=== PATIENT | female | born 1980 | race Caucasian/White ===

== ENCOUNTER 2019-07-21 18:45 | Emergency (ER) | payer OTHER, SELFPAY ==
[2019-07-21 18:58] VITALS: BP 133/68; PULSE 78; RESP 16; TEMP 36.7; O2SAT 100; BMI 21.7
[2019-07-21 19:22] LABS: Add Manual Diff / Slide Review NO; Basophils Absolute Auto 0 /uL (0-100); Basophils Percent Auto 0.3 % (0-2); Eosinophils Absolute Auto 100 /uL (0-450); Eosinophils Percent Auto 0.9 % (2-4); Hematocrit 35.1 % (36-46); Lymphocytes Absolute Auto 2100 /uL (1100-4500); Lymphocytes Percent Auto 24.1 % (25-40); Mean Corpuscular HGB Conc 34.3 % (30-36); Mean Corpuscular Hemoglobin 30.7 PG (26-34); Mean Corpuscular Volume 89.6 fL (80-100); Monocytes Absolute Auto 400 /uL (0-900); Monocytes Percent Auto 4.7 % (3-14); Neutrophils Absolute Auto 6200 /uL (1500-7000); Platelet Count 272 X10^3/uL (150-400); Red Blood Cell Count 3.92 X10^6/uL (4.0-5.2); Red Cell Distribution Width 12.8 % (11.6-14.8); White Blood Cell Count 8.9 X10^3/uL (4.5-11.0)
[2019-07-21 19:34] LABS: Alanine Aminotransferase 14 IU/L (<35); Albumin 4.3 g/dL (3.5-5.0); Albumin Globulin Ratio 1.4 (1.0-2.8); Alkaline Phosphatase 46 U/L (38-126); Aspartate Aminotransferase 22 IU/L (14-36); BUN Creatinine Ratio 17.1 (6-22); Bilirubin Total 0.5 mg/dL (0.2-1.3); Blood Urea Nitrogen 12 mg/dL (7-17); Calcium 9.1 mg/dL (8.4-10.2); Carbon Dioxide 24 mmol/L (22-32); Chloride 103 mmol/L (98-107); Estimated Glomerular Filt Rate > 60.0 mL/min (>60); Globulin 3.1 g/dL (1.7-4.1); Glucose 92 mg/dL (70-100); HEMOLYSIS < 15 (0-50); Potassium 3.3 mmol/L (3.4-5.1); Sodium 137 mmol/L (137-145); Total Protein 7.4 g/dL (6.3-8.2)
[2019-07-21 19:53] LABS: HCG Quantitative /Beta subunit 747 mIU/mL
[2019-07-21 21:17] VITALS: BP 112/56; PULSE 71; RESP 20; O2SAT 100
--- NOTE | 2019-07-21 21:32 | ED_ITS ---
HPI - General Chief complaint: OB/Uterine Contractions Stated complaint: LIGHT SPOTTING BACK PAIN Time Seen by Provider: 07/21/19 21:26 Source: patient Mode of arrival: Family Vehicle Limitations: no limitations History of Present Illness HPI Narrative: This is a 38-year-old female who comes to the emergency department with complaint back pain and some light spotting today. Patient states she has pain in the left lower back. It sort of point tenderness radiates little towards the buttock. When she lifts her move her legs it exacerbates it or she sits forward or bends forward. She has had some sciatic and back issues with her prior but she was not having any symptoms until today patient also noticed while she was urinating that there was some slight blood on the toilet paper as well as on her underwear. She states that she has had a positive test. She states her last menstrual period was June 09. Patient has not had any other symptoms, no syncope, no l ightheadedness, no chest pain or shortness of breath no nausea, no vomiting, no other GI or urinary symptoms. No frequency dysuria urgency. She has not had any other vaginal discharge. Patient states she is otherwise healthy. She has had 1 prior that was delivered via . She has not established with an OB yet but follows through the [facility]. Date of Last Menstrual Period: 06/09/19 Patient : Yes Expected Date of Delivery: 03/15/20 Related Data Previous Rx's Medication Instructions Recorded Mynatal 1 cap PO QDAY #30 cap 09/10/17 Allergies Allergy/AdvReac Type Severity Reaction Status Date / Time metoclopramide [From REGLAN] Allergy Intermediate muscle Unverified 12/20/17 09:55 tightness Sulfa (Sulfonamide Allergy Mild nausea Unverified 12/20/17 09:55 Antibiotics) [SULFA (SULFONAMIDE ANTIBIOTICS)] Review of Systems Review of Systems ROS Unobtainable: All systems reviewed & are unremarkable except as noted in HPI and below PMFSH - Past Medical History Medical history: Reports no medical history Surgical history: Reports (x1) Date of Last Menstrual Period: 06/09/19 Patient : Yes Expected Date of Delivery: 03/15/20 Exam Narrative Exam Narrative: GENERAL: Alert and oriented x three, then, well-appearing female in no acute distress. HEENT: Head normocephalic, atraumatic, EOMI, pupils reactive, face symmetric, moist mucous membranes NECK: Supple, full range of motion CARDIOVASCULAR: Regular rate and rhythm without murmurs, rubs or gallops. RESPIRATORY: Breath sounds equal bilaterally, no wheezes rales or rhonchi. ABDOMEN: Soft, nontender. Normoactive bowel sounds all 4 quadrants. No guarding or rebound, rigidity, no mass : No CVA tenderness EXTREMITIES: Normal range of motion, no clubbing or edema. Neurovascularly intact NEUROLOGICAL: Cranial nerves II through XII grossly intact. Moving all extremities SKIN: Warm, dry, no petechiae, no rashes or lesions. Initial Vital Signs Initial Vital Signs: Vital Signs Temperature 98.1 F 07/21/19 18:58 Pulse Rate 78 07/21/19 18:58 Respiratory Rate 16 07/21/19 18:58 Blood Pressure 133/68 07/21/19 18:58 Pulse Oximetry 100 07/21/19 18:58 Course Orders Ordered: ED Orders 07/21/19 19:15 ABO RH Type Stat Complete Blood Count AUTO DIFF Stat Comprehensive Metabolic Panel Stat HCG Quantitative /Beta subunit Stat 07/21/19 21:45 US OB <= 14 weeks fetus Stat Vital Signs Vital signs: Vital Signs - 8 hr 07/21/19 18:58 07/21/19 21:17 07/21/19 23:10 Temperature 98.1 F Pulse Rate 78 71 68 Respiratory Rate 16 20 13 Blood Pressure 133/68 112/69 Blood Pressure [Left Arm] 112/56 L Pulse Oximetry 100 100 100 MDM - OB/Uterine Contractions Lab Data Attestation: I reviewed the patient's lab results. Result diagrams: 07/21/19 19:15 07/21/19 19:15 Labs: Lab Results 07/21/19 07/21/19 07/21/19 Range/Units 19:15 19:15 19:15 WBC 8.9 (4.5-11.0) X10^3/uL RBC 3.92 L (4.0-5.2) X10^6/uL Hgb 12.0 (12.0-16.0) g/dL Hct 35.1 L (36-46) % MCV 89.6 (80-100) fL MCH 30.7 (26-34) PG MCHC 34.3 (30-36) % RDW 12.8 (11.6-14.8) % Plt Count 272 (150-400) X10^3/uL Neut % (Auto) 70.0 (50-75) % Lymph % (Auto) 24.1 L (25-40) % [place] % (Auto) 4.7 (3-14) % Eos % (Auto) 0.9 L (2-4) % Baso % (Auto) 0.3 (0-2) % Neut # (Auto) 6200 (9822-5862) /uL Lymph # (Auto) 2100 (0214-3703) /uL [place] # (Auto) 400 (0-900) /uL Eos # (Auto) 100 (0-450) /uL Baso # (Auto) 0 (0-100) /uL Sodium 137 (137-145) mmol/L Potassium 3.3 L (3.4-5.1) mmol/L Chloride 103 (98-107) mmol/L Carbon Dioxide 24 (22-32) mmol/L BUN 12 (7-17) mg/dL Creatinine 0.70 (0.52-1.04) mg/dL Estimated GFR > 60.0 (>60) mL/min BUN/Creatinine Ratio 17.1 (6-22) Glucose 92 (70-100) mg/dL Calcium 9.1 (8.4-10.2) mg/dL Total Bilirubin 0.5 (0.2-1.3) mg/dL AST 22 (14-36) IU/L ALT 14 (<35) IU/L Alkaline Phosphatase 46 (38-126) U/L Total Protein 7.4 (6.3-8.2) g/dL Albumin 4.3 (3.5-5.0) g/dL Globulin 3.1 (1.7-4.1) g/dL Albumin/Globulin Ratio 1.4 (1.0-2.8) HCG, Quant 747 mIU/mL Blood Type B Positive Point of Care Testing Test Results Positive Urine Dip Bedside Urine Glucose Negative Bedside Urine Bilirubin - Negative Bedside Urine Ketone + 15 Urine Specific [place] 1.015 Bedside Urine Occult Blood - Negative Bedside Urine pH 6.5 Bedside Urine Protein - Negative Bedside Urine Urobilinogen - Negative Bedside Urine Nitrite - Negative Bedside Urine Leukocytes - Negative Esterase Imaging Data US - OB: Radiologist's Impression: No pole visualized with an intrauterine gestational sac on today's exam consistent with early date of . Malin rveillance ultrasonography in 2-3 weeks to be helpful to assess for appropriate progression of the . Intra or very complex cyst as described likely hemorrhagic versus functional. No free fluid. MDM Narrative Medical decision making narrative: Patient is B+ and does not require rhogam. No pole was visualized but there is a gestational sac consistent with early date . Surveillance ultrasound in 2-3 weeks to be appropriate. There is intra ovarian complex described likely hemorrhagic versus functional. Discussed findings with patient. Recommendations for repeat imaging and encouraged her to contact either primary care doctor home who can follow this or through the [employer] she [facility]. Patient's back pain may be related to her prior back pain or this may be related today's episode, there is possibility for potential early miscarriage versus spotting during . Patient recommen ded to follow up with Dr. Isbell for recheck and serial exams. Discharge Plan Departure Patient Disposition: Home Clinical Impression: Vaginal bleeding during Discharge Date/Time: 07/21/19 23:10 Instructions: DI for Vaginal Bleeding During Activity Restrictions/Additional Instructions: Follow up with your physician or provider in the next week. Call Wednesday for an appointment. Your US is consistent with dates of . There is an intraovarian complex cyst, likely hemorrhagic versus functional. Your physician may follow-up with repeat ultrasound imaging. I would recommend pelvic rest until cleared by our provider, no lifting greater than 25lbs, no sexual activity. Return to the ER for fevers greater 100.4 F, rapidly worsened bleeding, large clots, lightheadedness, passing out, severe abdominal or back pain or other new or concerning symptoms. Prescriptions: No Action Mynatal 1 EACH capsule 1 cap PO QDAY Qty: 30 RF: 12 Referrals: Surinder Isbell MD [Primary Care Provider] -
--- NOTE | 2019-07-21 21:45 | DI.US.S_ITS ---
PROCEDURE: US OB <= 14 WEEKS FETUS INDICATIONS: BACK PAIN, SPOTTING OUTSIDE/PRIOR DATING DATA: Last menstrual period (LMP): 06/09/19. LMP-based estimated date of delivery (CATALINO): 03/15/20. First dating scan (date and location): 07/21/19, [facility]. Estimated date of delivery (CATALINO) from first dating scan: 03/23/20. TECHNIQUE: Real-time scanning was performed of the fetus and maternal pelvic organs, with image documentation. Endovaginal scanning was also performed to better visualize the fetus and maternal ovaries. COMPARISON: None. FINDINGS: Embryo: There is a gestational sac seen, with a mean diameter of 0.2 cm, which corresponds to an estimated gestational age of 4 weeks 6 days. No pole or yolk sac can be seen at this time. No abnormal vascularity can be seen. Measurement variability in dating: +/- 4 weeks by LMP, +/- 7 days by mean sac diameter (use before 6 weeks gestation if crown-rump length not able to be measured), +/- 5 days by crown-rump length (up to 8 weeks 6 days gestation), +/- 7 days by crown-rump length (up to 13 weeks 6 days gestation). Maternal organs: Ovaries are unremarkable, with a left-sided likely corpus luteum. Limited images through the kidneys demonstrate no hydronephrosis. IMPRESSION: There is an apparent intrauterine gestational sac seen, with an approximately 1 week discrepancy between the estimated gestational age based upon these images and the given date of the last menstrual period. Close clinical followup, with serial beta-hCG and serial ultrasound are recommended, as clinically appropriate. Note: No significant discrepancy from the preliminary report. Dictated by: Steve Parada M.D. on 07/22/2019 at 9:03 Approved by: Steve Parada M.D. on 07/22/2019 at 9:05
[2019-07-21 23:10] VITALS: BP 112/69; PULSE 68; RESP 13; O2SAT 100
== END 2019-07-21 23:10 | disposition home or self-care (01) ==
PROVIDERS: Emergency Medicine; Emergency Provider Emergency Medicine; PCP Family Medicine
DX: O46.91 Antepartum hemorrhage, unspecified, first trimester (principal)
CPT/HCPCS: 36415; 76801; 76817; 80053; 81003; 81025; 84702; 85025; 86900; 86901; 99284

== ENCOUNTER 2023-12-22 11:15 | Outpatient (RCR) | payer OTHER, SELFPAY ==
--- NOTE | 2023-08-05 16:00 | PT.OPPOC ---
Physical, Occupational & Speech Therapy At [facility] Current Diagnoses Stress incontinence (female) (male) (08/05/23) Pelvic muscle wasting (08/05/23) Feeling of incomplete bladder emptying (08/05/23) Visit Care Team Role Provider Type ALEX Mahajan Attending Provider Non-Staff Family Provider Primary Care Provider Referring Provider Specialty: Nursing Address: [facility], [address] [place] [address] , [place], [address] Email: Plan Of Care PT-OP-T Assessment and Plan Start: 08/05/23 11:48 Freq: Status: Active Protocol: Document 08/05/23 15:15 [facility] (Rec: 08/05/23 16:23 [facility] [id number]) Physical Therapy Assessment Rehab Potential Rehabilitation Potential Excellent Evaluation Complexity Number of Personal Factors/Comorbidities 0 Number of Body Systems Impaired 1-2 Clinical Presentation at Evaluation Stable Impairments Impairments Activity Tolerance,Functional Activities,Pain,Soft Tissue Mobility,Strength Other Impairments urinary stress incontinence and difficulty fully emptying her bladder Goals 3 Impairment Decreased endurance of the pelvic floor Short Term Goal (STG) Quyen is able to sustain a pelvic floor contraction in supine x 10 seconds STG Duration 6 weeks Fire Control Technician Goal (LTG) Quyen is able to sustain a pelvic floor contraction in standing x 5 seconds LTG Duration 12 weeks 2 Impairment Pelvic floor muscle guarding on the left side of the levator ani and pt has difficulty relaxing her pelvic floor at rest Short Term Goal (STG) Quyen is educated on relaxed awareness of the pelvic floor and is given stretches to begin working on pelvic floor relaxation STG Duration 4 weeks Shelter Goal (LTG) Quyen is able to fully relax her pelvic floor at rest with EMG biofeedback LTG Duration 12 weeks 1 Impairment urinary stress incontinence Shelter Goal (LTG) Quyen is no longer reporting urinary leakage with strong cough or sneeze Assessment Summary Assessment Quyen is a 42 year old female referred to PT with complaints of urinary incontinence with strong cough or sneeze and vigorous exercise. She is 5 years post from a delivery. Prior to the c section she was attempting a vaginal delivery. She reports she pushed for 3 hours and then forceps and vacuum were used to try to deliver the baby vaginally. Quyen reports that since her delivery she has had a slower urinary stream and doesn't feel as if she is fully emptying her bladder. She also has some complaints of anterior pelvic pain that is intermittent in nature. With examination today Quyen presents with guarding of the levator ani on the left side and decreased ability to relax her pelvic floor on the left. The right side is tight but she is better able to relax. She tests 3/5 MMT for all gomez of the levator ani. She presents with decreased endurance of her pelvic floor. Quyen would benefit from learning to fully relax her pelvic floor prior to working on pelvic floor endurance. She was educated on fully relaxing her pelvic floor with voiding and taking her time with voiding to help improve full bladder emptying. She was also educated today on stretches she can do at home to help with pelvic floor relaxation. Quyen is a good candidate for EMG biofeedback for the pelvic floor to work on down training for her pelvic floor muscles and then working up to endurance training. Physical Therapy Plan Frequency and Duration Frequency of Treatment 1x/Week Duration of treatment (weeks) 12 Plan of Care Start Date 08/05/23 Plan of Care End Date 10/28/23 Therapeutic Interventions Therapeutic Interventions Home Exercise Program, Neuromuscular Re-education, Patient/Caregiver Education, Self-Care/Home Management,Soft Tissue Mobilization, Therapeutic Exercises Modalities Biofeedback Next Visit Focus/Plan Next Note Type Treatment Note Next Visit Plan Begin EMG biofeedback next visit for relaxed awareness of the pelvic floor, review stretches given at today's visit. Plan of Care Dates Plan of Care Start Date 08/05/23 Plan of Care End Date 10/28/23 Electronically Signed by: Kari Cavanaugh, PT 08/10/23 [id number] If you are in agreement with this Plan of Care, please return a signed and dated copy. I have reviewed this Plan of Care and certify that the skilled therapy services above are required to meet the patient?s needs. Physician Signature Date Printed Name and Credentials Clinical Instructor Signature Printed Name and Credentials
--- NOTE | 2023-08-05 16:00 | PT.OIE ---
Current Diagnoses Stress incontinence (female) (male) (08/05/23) Pelvic muscle wasting (08/05/23) Feeling of incomplete bladder emptying (08/05/23) Past Surgical History (Last Reviewed 12/02/17 @ 15:51 by Kathleen Mcmahon LPN) Status post delivery (09/07/17) Visit Care Team Role Provider Type ALEX Mahajan Attending Provider Non-Staff Family Provider Primary Care Provider Referring Provider Specialty: Nursing Address: [facility] [address], [place], [address] Email: Physical Therapy Initial Evaluation PT-OP-A Visit Information Start: 08/05/23 11:48 Freq: Status: Active Protocol: Document 08/05/23 15:15 [facility] (Rec: 08/05/23 16:23 [facility] [id number]) Out-Patient Physical Therapy Visit Information Visit Information Visit Type Initial Evaluation Visit Start Time 15:15 Visit Stop Time 16:00 Visit Number 1 Evaluation Information Evaluation Date 08/05/23 PT-OP-B Current Condition Start: 08/05/23 11:48 Freq: Status: Active Protocol: Document 08/05/23 15:15 [facility] (Rec: 08/05/23 16:23 [facility] [id number]) Current Condition History of Current Condition Onset Date 2018 Current Complaints urinary leakage with strong cough and sneeze, not fully emptying the bladde History of Current Condition pt notes she is having incontinence symptoms, she was told she has atrophied She has a history of a c section after she pushed for 3 hours and then forceps and vaccumm were used. The doctors were unable to get a good enough grasp of her head. Her delivery was in 2018. She has slower stream but feels she often doesn't fully emptying her bladder. She has felt more anterior pelvic pain symptoms more often now. She does have a history of UTI's. IT is intercourse related and she goes to the bathroom. She also has complaints of jaw pain that is more noticiable in the last year. PT-OP-C Subjective Start: 08/05/23 11:48 Freq: Status: Active Protocol: Document 08/05/23 15:15 [facility] (Rec: 08/10/23 15:08 [facility] [id number]) Patient Questionnaires Pelvic Pain and Urgency/Frequency Patient Symptom Scale Pelvic Pain Score 9 PT-OP-I Pelvic Floor Start: 08/05/23 11:48 Freq: Status: Active Protocol: Document 08/05/23 15:15 [facility] (Rec: 08/10/23 08:15 [facility] [id number]) Pelvic Floor Assessment Urine Pelvic Floor Surgery No Urinary Symptoms Urge Sensation Other Urinary Symptoms urinary stress incontinence with strong cough and sneeze or vigorous activity, pt also discribes mild urgency and occasional pain associated with per vagina Leakage Size Small Leakage Cause Cough,Sneeze Voiding Frequency 5 Nocturia 1 Pelvic Clock Pelvic Clock 3-6 Guarding,Tightness Pelvic Clock 6-9 Tightness Contraction Ability Manual Muscle Testing Left 3 Manual Muscle Testing Right 3 Manual Muscle Testing Anterior 3 Manual Muscle Testing Posterior 3 Muscle Endurance (Seconds) 4 Comments Pelvic Floor Comments pt resting tone on the left side of the pelvic clock is guarded and tight, it is difficult for her to relax her pelvic floor following a contraction PT-OP-Q Treatments Start: 08/05/23 11:48 Freq: Status: Active Protocol: Document 08/05/23 15:15 [facility] (Rec: 08/05/23 16:23 [facility] [id number]) Therapeutic Exercises Supine Exercises hip flexor stretch at the side of the bed Reps/Minutes hold 1-2 min single knee to chest stretch Reps/Minutes hold 1-2 minutes piriformis stretch Reps/Minutes hold 1-2 minutes supine modified squat stretch Reps/Minutes hold 1-2 minutes Other Exercises modified squat stretch Reps/Minutes hold 1-2 min PT-OP-T Assessment and Plan Start: 08/05/23 11:48 Freq: Status: Active Protocol: Document 08/05/23 15:15 [facility] (Rec: 08/05/23 16:23 [facility] [id number]) Physical Therapy Assessment Rehab Potential Rehabilitation Potential Excellent Evaluation Complexity Number of Personal Factors/Comorbidities 0 Number of Body Systems Impaired 1-2 Clinical Presentation at Evaluation Stable Impairments Impairments Activity Tolerance,Functional Activities,Pain,Soft Tissue Mobility,Strength Other Impairments urinary stress incontinence and difficulty fully emptying her bladder Goals 3 Impairment Decreased endurance of the pelvic floor Short Term Goal (STG) Quyen is able to sustain a pelvic floor contraction in supine x 10 seconds STG Duration 6 weeks Nuisance Wildlife Control Operator Goal (LTG) Quyen is able to sustain a pelvic floor contraction in standing x 5 seconds LTG Duration 12 weeks 2 Impairment Pelvic floor muscle guarding on the left side of the levator ani and pt has difficulty relaxing her pelvic floor at rest Short Term Goal (STG) Quyen is educated on relaxed awareness of the pelvic floor and is given stretches to begin working on pelvic floor relaxation STG Duration 4 weeks Nursing Home Goal (LTG) Quyen is able to fully relax her pelvic floor at rest with EMG biofeedback LTG Duration 12 weeks 1 Impairment urinary stress incontinence Nuisance Wildlife Control Operator Goal (LTG) Quyen is no longer reporting urinary leakage with strong cough or sneeze Assessment Summary Assessment Quyen is a 42 year old female referred to PT with complaints of urinary incontinence with strong cough or sneeze and vigorous exercise. She is 5 years post from a delivery. Prior to the c section she was attempting a vaginal delivery. She reports she pushed for 3 hours and then forceps and vaccumm were used to try to deliver the baby vaginally. Quyen reports that since her delivery she has had a slower urinary stream and doesn't feel as if she is fully emptying her bladder. She also has some complaints of anterior pelvic pain that is intermittent in nature. With examination today Quyen presents with guarding of the levator ani on the left side and decreased ability to relax her pelvic floor on the left. The right side is tight but she is better able to relax. She tests 3/5 MMT for all gomez of the levator ani. She presents with decreased endurance of her pelvic floor. Quyen would benefit from learning to fully relax her pelvic floor prior to working on pelvic floor endurance. She was educated on fully relaxing her pelvic floor with voiding and taking her time with voiding to help improve full bladder emptying. She was also educated today on stretches she can do at home to help with pelvic floor relaxation. Quyen is a good candidate for EMG biofeedback for the pelvic floor to work on down training for her pelvic floor muscles and then working up to endurance training. Physical Therapy Plan Frequency and Duration Frequency of Treatment 1x/Week Duration of treatment (weeks) 12 Plan of Care Start Date 08/05/23 Plan of Care End Date 10/28/23 Therapeutic Interventions Therapeutic Interventions Home Exercise Program, Neuromuscular Re-education, Patient/Caregiver Education, Self-Care/Home Management,Soft Tissue Mobilization, Therapeutic Exercises Modalities Biofeedback Next Visit Focus/Plan Next Note Type Treatment Note Next Visit Plan Begin EMG biofeedback next visit for relaxed awarensess of the pelvic floor, review stretches given at today's visit.
--- NOTE | 2023-08-10 16:17 | PT.OTN ---
Current Diagnoses Stress incontinence (female) (male) (08/10/23) Pelvic muscle wasting (08/10/23) Feeling of incomplete bladder emptying (08/10/23) Physical Therapy Treatment Note PT-OP-A Visit Information Start: 08/05/23 11:48 Freq: Status: Active Protocol: Document 08/10/23 15:15 [facility] (Rec: 08/10/23 16:17 [facility] [id number]) Out-Patient Physical Therapy Visit Information Visit Information Visit Type Treatment Note Visit Start Time 15:15 Visit Stop Time 16:00 Visit Number 45 Evaluation Information Evaluation Date 08/05/23 PT-OP-B Current Condition Start: 08/05/23 11:48 Freq: Status: Active Protocol: Document 08/05/23 15:15 [facility] (Rec: 08/05/23 16:23 [facility] [id number]) Current Condition History of Current Condition Onset Date 2018 Current Complaints urinary leakage with strong cough and sneeze, not fully emptying the bladde History of Current Condition pt notes she is having incontinence symptoms, she was told she has atrophied She has a history of a c section after she pushed for 3 hours and then forceps and vaccumm were used. The doctors were unable to get a good enough grasp of her head. Her delivery was in 2018. She has slower stream but feels she often doesn't fully emptying her bladder. She has felt more anterior pelvic pain symptoms more often now. She does have a history of UTI's. IT is intercourse related and she goes to the bathroom. She also has complaints of jaw pain that is more noticiable in the last year. PT-OP-C Subjective Start: 08/05/23 11:48 Freq: Status: Active Protocol: Document 08/10/23 15:15 [facility] (Rec: 08/10/23 16:17 [facility] [id number]) OP-PT Subjective Patient Comments Patient Comments she has been working on fully emptying her bladder with voiding, she has been able to get more out PT-OP-I Pelvic Floor Start: 08/05/23 11:48 Freq: Status: Active Protocol: Document 08/05/23 15:15 [facility] (Rec: 08/10/23 08:15 [facility] [id number]) Pelvic Floor Assessment Urine Pelvic Floor Surgery No Urinary Symptoms Urge Sensation Other Urinary Symptoms urinary stress incontinence with strong cough and sneeze or vigorous activity, pt also discribes mild urgency and occasional pain associated with per vagina Leakage Size Small Leakage Cause Cough,Sneeze Voiding Frequency 5 Nocturia 1 Pelvic Clock Pelvic Clock 3-6 Guarding,Tightness Pelvic Clock 6-9 Tightness Contraction Ability Manual Muscle Testing Left 3 Manual Muscle Testing Right 3 Manual Muscle Testing Anterior 3 Manual Muscle Testing Posterior 3 Muscle Endurance (Seconds) 4 Comments Pelvic Floor Comments pt resting tone on the left side of the pelvic clock is guarded and tight, it is difficult for her to relax her pelvic floor following a contraction PT-OP-Q Treatments Start: 08/05/23 11:48 Freq: Status: Active Protocol: Document 08/10/23 15:15 [facility] (Rec: 08/10/23 16:17 [facility] [id number]) Therapeutic Exercises Supine Exercises hip flexor stretch at the side of the bed Reps/Minutes hold 1-2 min single knee to chest stretch Reps/Minutes hold 1-2 minutes piriformis stretch Reps/Minutes hold 1-2 minutes supine modified squat stretch Reps/Minutes hold 1-2 minutes Other Exercises pelvic floor long holds Reps/Minutes x 10 reps Comments avg 16, max is 29 rest 3.2 EMG biofeedback Other Exercise Name resting tone 5.0 uv Comments worked on relaxed awareness of the pelvic floor modified squat stretch Reps/Minutes hold 1-2 min PT-OP-T Assessment and Plan Start: 08/05/23 11:48 Freq: Status: Active Protocol: Document 08/10/23 15:15 [facility] (Rec: 08/10/23 16:17 [facility] [id number]) Physical Therapy Assessment Assessment Summary Assessment gave home program of 10 5 sec hold time and 10-20 sec rest time. She did feel tightness in her abdomen in the front. Quyen was able to relax from 5.0 uv to 3 uv after pelvic floor contractions. She may benefit from fascial work over the abdomen to help decrease the anterior tightness and guarding she is feeling. I will start this next visit Physical Therapy Plan Frequency and Duration Frequency of Treatment 1x/Week Duration of treatment (weeks) 12 Plan of Care Start Date 08/05/23 Plan of Care End Date 10/28/23 Next Visit Focus/Plan Next Note Type Treatment Note Next Visit Plan check in with how Quyen did with her exercises and stretches, trial of MFR technique over the suprapubic fascia and distal iliopsoas attachments, adductor attachments Continue with EMG biofeedback for relaxed awareness of the pelvic floor.
--- NOTE | 2023-08-31 16:18 | PT.OTN ---
Current Diagnoses Stress incontinence (female) (male) (08/31/23) Pelvic muscle wasting (08/31/23) Feeling of incomplete bladder emptying (08/31/23) Physical Therapy Treatment Note PT-OP-A Visit Information Start: 08/05/23 11:48 Freq: Status: Active Protocol: Document 08/31/23 15:14 [facility] (Rec: 08/31/23 16:18 [facility] [id number]) Out-Patient Physical Therapy Visit Information Visit Information Visit Type Treatment Note Visit Start Time 15:15 Visit Stop Time 16:00 Visit Number 4 PT-OP-B Current Condition Start: 08/05/23 11:48 Freq: Status: Active Protocol: Document 08/05/23 15:15 [facility] (Rec: 08/05/23 16:23 [facility] [id number]) Current Condition History of Current Condition Onset Date 2018 Current Complaints urinary leakage with strong cough and sneeze, not fully emptying the bladde History of Current Condition pt notes she is having incontinence symptoms, she was told she has atrophied She has a history of a c section after she pushed for 3 hours and then forceps and vaccumm were used. The doctors were unable to get a good enough grasp of her head. Her delivery was in 2018. She has slower stream but feels she often doesn't fully emptying her bladder. She has felt more anterior pelvic pain symptoms more often now. She does have a history of UTI's. IT is intercourse related and she goes to the bathroom. She also has complaints of jaw pain that is more noticiable in the last year. PT-OP-C Subjective Start: 08/05/23 11:48 Freq: Status: Active Protocol: Document 08/31/23 15:14 [facility] (Rec: 08/31/23 16:18 [facility] [id number]) OP-PT Subjective Patient Comments Patient Comments pt notes she had a episode where she felt like she may pass out, she does not with IBS she will have a vagal response. She is doing better at trying to fully relax her pelvic floor to void PT-OP-I Pelvic Floor Start: 08/05/23 11:48 Freq: Status: Active Protocol: Document 08/05/23 15:15 [facility] (Rec: 08/10/23 08:15 [facility] [id number]) Pelvic Floor Assessment Urine Pelvic Floor Surgery No Urinary Symptoms Urge Sensation Other Urinary Symptoms urinary stress incontinence with strong cough and sneeze or vigorous activity, pt also discribes mild urgency and occasional pain associated with per vagina Leakage Size Small Leakage Cause Cough,Sneeze Voiding Frequency 5 Nocturia 1 Pelvic Clock Pelvic Clock 3-6 Guarding,Tightness Pelvic Clock 6-9 Tightness Contraction Ability Manual Muscle Testing Left 3 Manual Muscle Testing Right 3 Manual Muscle Testing Anterior 3 Manual Muscle Testing Posterior 3 Muscle Endurance (Seconds) 4 Comments Pelvic Floor Comments pt resting tone on the left side of the pelvic clock is guarded and tight, it is difficult for her to relax her pelvic floor following a contraction PT-OP-Q Treatments Start: 08/05/23 11:48 Freq: Status: Active Protocol: Document 08/31/23 15:14 [facility] (Rec: 08/31/23 16:18 [facility] [id number]) Therapeutic Exercises Supine Exercises windshield wipers Reps/Minutes x 20 reps Comments this helped relax the pelvic floor to 1.0 uv hip flexor stretch at the side of the bed Reps/Minutes hold 1-2 min Other Exercises pelvic floor long holds Other Exercise Name 2.5 uv at rest Reps/Minutes x 10 reps Comments average 16.4 and 26.7 uv EMG biofeedback Other Exercise Name 2.5 resting tone Comments hip exercises helped lower to 1.0 uv rest Manual Therapy Treatment Manual Techniques manual iliopsoas release Body Location Bilateral hips Comments in ron test position, right side was not as tight today as compared to previos visits PT-OP-T Assessment and Plan Start: 08/05/23 11:48 Freq: Status: Active Protocol: Document 08/31/23 15:14 [facility] (Rec: 08/31/23 16:18 [facility] [id number]) Physical Therapy Assessment Rehab Potential Rehabilitation Potential Excellent Evaluation Complexity Number of Personal Factors/Comorbidities 0 Number of Body Systems Impaired 1-2 Clinical Presentation at Evaluation Stable Impairments Impairments Activity Tolerance,Functional Activities,Pain,Soft Tissue Mobility,Strength Other Impairments urinary stress incontinence and difficulty fully emptying her bladder Goals 3 Impairment Decreased endurance of the pelvic floor Short Term Goal (STG) Quyen is able to sustain a pelvic floor contraction in supine x 10 seconds STG Duration 6 weeks Care Home Goal (LTG) Quyen is able to sustain a pelvic floor contraction in standing x 5 seconds LTG Duration 12 weeks 2 Impairment Pelvic floor muscle guarding on the left side of the levator ani and pt has difficulty relaxing her pelvic floor at rest Short Term Goal (STG) Quyen is educated on relaxed awareness of the pelvic floor and is given stretches to begin working on pelvic floor relaxation STG Duration 4 weeks Care Home Goal (LTG) Quyen is able to fully relax her pelvic floor at rest with EMG biofeedback LTG Duration 12 weeks 1 Impairment urinary stress incontinence Component Assembler Goal (LTG) Quyen is no longer reporting urinary leakage with strong cough or sneeze Assessment Summary Assessment iliopsoas was not as tight today on the right side as it has been, Quyen has been working on standing at work and today she stood x 3 hours Physical Therapy Plan Therapeutic Interventions Therapeutic Interventions Home Exercise Program, Neuromuscular Re-education, Patient/Caregiver Education, Self-Care/Home Management,Soft Tissue Mobilization, Therapeutic Exercises Modalities Biofeedback Next Visit Focus/Plan Next Note Type Treatment Note Next Visit Plan continue with somatic exercises and releasing the hips to help release pelvic floor resting tone
--- NOTE | 2023-09-30 16:28 | PT.OTN ---
Current Diagnoses Stress incontinence (female) (male) (09/30/23) Pelvic muscle wasting (09/30/23) Feeling of incomplete bladder emptying (09/30/23) Physical Therapy Treatment Note PT-OP-A Visit Information Start: 08/05/23 11:48 Freq: Status: Active Protocol: Document 09/30/23 09:06 [facility] (Rec: 09/30/23 09:45 [facility] [id number]) Out-Patient Physical Therapy Visit Information Visit Information Visit Start Time 09:00 Visit Stop Time 09:45 Visit Number 5 PT-OP-B Current Condition Start: 08/05/23 11:48 Freq: Status: Active Protocol: Document 08/05/23 15:15 [facility] (Rec: 08/05/23 16:23 [facility] [id number]) Current Condition History of Current Condition Onset Date 2018 Current Complaints urinary leakage with strong cough and sneeze, not fully emptying the bladde History of Current Condition pt notes she is having incontinence symptoms, she was told she has atrophied She has a history of a c section after she pushed for 3 hours and then forceps and vaccumm were used. The doctors were unable to get a good enough grasp of her head. Her delivery was in 2018. She has slower stream but feels she often doesn't fully emptying her bladder. She has felt more anterior pelvic pain symptoms more often now. She does have a history of UTI's. IT is intercourse related and she goes to the bathroom. She also has complaints of jaw pain that is more noticiable in the last year. PT-OP-C Subjective Start: 08/05/23 11:48 Freq: Status: Active Protocol: Document 09/30/23 09:06 [facility] (Rec: 09/30/23 09:45 [facility] [id number]) OP-PT Subjective Patient Comments Patient Comments pt notes she is tensing so bad in her lower abdominal muscles that she feels like she has a UTI. She has to take AZO to calm it down. She also had a severe back spasm on the right side and she has nerve pain in slump test position. Her right hip flexor is really tight PT-OP-I Pelvic Floor Start: 08/05/23 11:48 Freq: Status: Active Protocol: Document 08/05/23 15:15 [facility] (Rec: 08/10/23 08:15 [facility] [id number]) Pelvic Floor Assessment Urine Pelvic Floor Surgery No Urinary Symptoms Urge Sensation Other Urinary Symptoms urinary stress incontinence with strong cough and sneeze or vigorous activity, pt also discribes mild urgency and occasional pain associated with per vagina Leakage Size Small Leakage Cause Cough,Sneeze Voiding Frequency 5 Nocturia 1 Pelvic Clock Pelvic Clock 3-6 Guarding,Tightness Pelvic Clock 6-9 Tightness Contraction Ability Manual Muscle Testing Left 3 Manual Muscle Testing Right 3 Manual Muscle Testing Anterior 3 Manual Muscle Testing Posterior 3 Muscle Endurance (Seconds) 4 Comments Pelvic Floor Comments pt resting tone on the left side of the pelvic clock is guarded and tight, it is difficult for her to relax her pelvic floor following a contraction PT-OP-Q Treatments Start: 08/05/23 11:48 Freq: Status: Active Protocol: Document 09/30/23 16:24 [facility] (Rec: 09/30/23 16:26 [facility] [id number]) Therapeutic Exercises Supine Exercises ball squeeze Reps/Minutes x 10 reps holding 5 seconds Manual Therapy Treatment Soft Tissue Mobilization MFR over the abdominal wall and suprapubic fascia Body Location abdominal wall Mobilization Type Myofascial Release Intensity/Depth Moderate Body Position Hooklying Comments worked on both suprapubic fascia as well as abdominal wall release Manual Techniques sacral counter nutation MET Reps/Duration x 5 reps kinesio tape Comments kinesio tape over the lumbar sacral fascia star pattern to decrease swelling MET for right pubic upslip Type MET for right pubic upslip Reps/Duration x 5 reps manual iliopsoas release Body Location Bilateral hips Comments in ron test position, right side was not as tight today as compared to previos visits PT-OP-T Assessment and Plan Start: 08/05/23 11:48 Freq: Status: Active Protocol: Document 09/30/23 09:06 [facility] (Rec: 09/30/23 09:45 [facility] [id number]) Physical Therapy Assessment Goals 3 Impairment Decreased endurance of the pelvic floor Short Term Goal (STG) Quyen is able to sustain a pelvic floor contraction in supine x 10 seconds STG Duration 6 weeks Correction Goal (LTG) Quyen is able to sustain a pelvic floor contraction in standing x 5 seconds LTG Duration 12 weeks Assessment Summary Assessment rightpubic bone was upslipped which may have been causing the increase in pelvic pain. I tried kinesiotape today to decrease swelling over the sacrum. Check in next visit to see how Quyen hernandezate this Physical Therapy Plan Frequency and Duration Frequency of Treatment 1x/Week Duration of treatment (weeks) 12 Plan of Care Start Date 08/05/23 Plan of Care End Date 10/28/23 Next Visit Focus/Plan Next Note Type Treatment Note Next Visit Plan continue with somatic exercises and releasing the hips to help release pelvic floor resting tone
--- NOTE | 2023-10-05 09:06 | PT.OTN ---
Current Diagnoses Stress incontinence (female) (male) (10/05/23) Pelvic muscle wasting (10/05/23) Feeling of incomplete bladder emptying (10/05/23) Physical Therapy Treatment Note PT-OP-A Visit Information Start: 08/05/23 11:48 Freq: Status: Active Protocol: Document 10/05/23 08:11 [facility] (Rec: 10/05/23 09:06 [facility] [id number]) Out-Patient Physical Therapy Visit Information Visit Information Visit Type Treatment Note Visit Start Time 08:15 Visit Stop Time 09:00 Visit Number 6 PT-OP-B Current Condition Start: 08/05/23 11:48 Freq: Status: Active Protocol: Document 08/05/23 15:15 [facility] (Rec: 08/05/23 16:23 [facility] [id number]) Current Condition History of Current Condition Onset Date 2018 Current Complaints urinary leakage with strong cough and sneeze, not fully emptying the bladde History of Current Condition pt notes she is having incontinence symptoms, she was told she has atrophied She has a history of a c section after she pushed for 3 hours and then forceps and vaccumm were used. The doctors were unable to get a good enough grasp of her head. Her delivery was in 2018. She has slower stream but feels she often doesn't fully emptying her bladder. She has felt more anterior pelvic pain symptoms more often now. She does have a history of UTI's. IT is intercourse related and she goes to the bathroom. She also has complaints of jaw pain that is more noticiable in the last year. PT-OP-C Subjective Start: 08/05/23 11:48 Freq: Status: Active Protocol: Document 10/05/23 08:11 [facility] (Rec: 10/05/23 09:06 [facility] [id number]) OP-PT Subjective Patient Comments Patient Comments pt notes she is still a little tense in her lower abdomen but not as bad. She took the tape off of the sacrum today. The right hip flexor is still tight. PT-OP-I Pelvic Floor Start: 08/05/23 11:48 Freq: Status: Active Protocol: Document 08/05/23 15:15 [facility] (Rec: 08/10/23 08:15 [facility] [id number]) Pelvic Floor Assessment Urine Pelvic Floor Surgery No Urinary Symptoms Urge Sensation Other Urinary Symptoms urinary stress incontinence with strong cough and sneeze or vigorous activity, pt also discribes mild urgency and occasional pain associated with per vagina Leakage Size Small Leakage Cause Cough,Sneeze Voiding Frequency 5 Nocturia 1 Pelvic Clock Pelvic Clock 3-6 Guarding,Tightness Pelvic Clock 6-9 Tightness Contraction Ability Manual Muscle Testing Left 3 Manual Muscle Testing Right 3 Manual Muscle Testing Anterior 3 Manual Muscle Testing Posterior 3 Muscle Endurance (Seconds) 4 Comments Pelvic Floor Comments pt resting tone on the left side of the pelvic clock is guarded and tight, it is difficult for her to relax her pelvic floor following a contraction PT-OP-Q Treatments Start: 08/05/23 11:48 Freq: Status: Active Protocol: Document 10/05/23 08:11 [facility] (Rec: 10/05/23 09:06 [facility] [id number]) Therapeutic Exercises Supine Exercises ball squeeze Reps/Minutes x 10 reps holding 5 seconds hip flexor stretch at the side of the bed Reps/Minutes hold 1-2 min single knee to chest stretch Reps/Minutes hold 1-2 minutes piriformis stretch Reps/Minutes hold 1-2 minutes Other Exercises rock backs in flexion Reps/Minutes x 10 reps cat cow Reps/Minutes x 15 Manual Therapy Treatment Manual Techniques mwm with the mobilization belt Type mwm for the hip with mobilization belt Comments idecompression right hip with hip flexion with mobilization belt MET for right pubic upslip Type MET for right pubic upslip Reps/Duration x 5 reps manual iliopsoas release Body Location Bilateral hips Comments in ron test position, right side was not as tight today as compared to previos visits PT-OP-T Assessment and Plan Start: 08/05/23 11:48 Freq: Status: Active Protocol: Document 10/05/23 08:11 [facility] (Rec: 10/05/23 09:06 [facility] [id number]) Physical Therapy Assessment Goals 3 Impairment Decreased endurance of the pelvic floor Short Term Goal (STG) Quyen is able to sustain a pelvic floor contraction in supine x 10 seconds STG Duration 6 weeks Ballistics Teacher Goal (LTG) Quyen is able to sustain a pelvic floor contraction in standing x 5 seconds LTG Duration 12 weeks 2 Impairment Pelvic floor muscle guarding on the left side of the levator ani and pt has difficulty relaxing her pelvic floor at rest Short Term Goal (STG) Quyen is educated on relaxed awareness of the pelvic floor and is given stretches to begin working on pelvic floor relaxation STG Duration 4 weeks Ballistics Teacher Goal (LTG) Quyen is able to fully relax her pelvic floor at rest with EMG biofeedback LTG Duration 12 weeks 1 Impairment urinary stress incontinence Ballistics Teacher Goal (LTG) Quyen is no longer reporting urinary leakage with strong cough or sneeze Assessment Summary Assessment still upslipped today but not as much as last visit, I worked again on releasing the right hip flexor and tried MWM with the mobilization belt She no longer feels like she has a UTI and notes she is not as tight as she was last week . Physical Therapy Plan Frequency and Duration Frequency of Treatment 1x/Week Duration of treatment (weeks) 12 Plan of Care Start Date 08/05/23 Plan of Care End Date 10/28/23 Therapeutic Interventions Therapeutic Interventions Home Exercise Program, Neuromuscular Re-education, Patient/Caregiver Education, Self-Care/Home Management,Soft Tissue Mobilization, Therapeutic Exercises Modalities Biofeedback Next Visit Focus/Plan Next Note Type Treatment Note Next Visit Plan continue with somatic exercises and releasing the hips to help release pelvic floor resting tone
--- NOTE | 2023-10-12 16:16 | PT.OTN ---
Current Diagnoses Stress incontinence (female) (male) (10/12/23) Pelvic muscle wasting (10/12/23) Feeling of incomplete bladder emptying (10/12/23) Physical Therapy Treatment Note PT-OP-A Visit Information Start: 08/05/23 11:48 Freq: Status: Active Protocol: Document 10/12/23 15:28 [facility] (Rec: 10/12/23 16:08 [facility] [id number]) Out-Patient Physical Therapy Visit Information Visit Information Visit Type Treatment Note Visit Start Time 15:20 Visit Stop Time 16:00 Visit Number 7 PT-OP-B Current Condition Start: 08/05/23 11:48 Freq: Status: Active Protocol: Document 08/05/23 15:15 [facility] (Rec: 08/05/23 16:23 [facility] [id number]) Current Condition History of Current Condition Onset Date 2018 Current Complaints urinary leakage with strong cough and sneeze, not fully emptying the bladde History of Current Condition pt notes she is having incontinence symptoms, she was told she has atrophied She has a history of a c section after she pushed for 3 hours and then forceps and vaccumm were used. The doctors were unable to get a good enough grasp of her head. Her delivery was in 2018. She has slower stream but feels she often doesn't fully emptying her bladder. She has felt more anterior pelvic pain symptoms more often now. She does have a history of UTI's. IT is intercourse related and she goes to the bathroom. She also has complaints of jaw pain that is more noticiable in the last year. PT-OP-C Subjective Start: 08/05/23 11:48 Freq: Status: Active Protocol: Document 10/12/23 15:28 [facility] (Rec: 10/12/23 16:08 [facility] [id number]) OP-PT Subjective Patient Comments Patient Comments pt notes she still isn't back to normal and her back gets tight, Xray was normal the right anterior hip still feels tight. She did have to run with her son on his bike last night and no leakage and no increased hip pain. PT-OP-I Pelvic Floor Start: 08/05/23 11:48 Freq: Status: Active Protocol: Document 08/05/23 15:15 [facility] (Rec: 08/10/23 08:15 [facility] [id number]) Pelvic Floor Assessment Urine Pelvic Floor Surgery No Urinary Symptoms Urge Sensation Other Urinary Symptoms urinary stress incontinence with strong cough and sneeze or vigorous activity, pt also discribes mild urgency and occasional pain associated with per vagina Leakage Size Small Leakage Cause Cough,Sneeze Voiding Frequency 5 Nocturia 1 Pelvic Clock Pelvic Clock 3-6 Guarding,Tightness Pelvic Clock 6-9 Tightness Contraction Ability Manual Muscle Testing Left 3 Manual Muscle Testing Right 3 Manual Muscle Testing Anterior 3 Manual Muscle Testing Posterior 3 Muscle Endurance (Seconds) 4 Comments Pelvic Floor Comments pt resting tone on the left side of the pelvic clock is guarded and tight, it is difficult for her to relax her pelvic floor following a contraction PT-OP-Q Treatments Start: 08/05/23 11:48 Freq: Status: Active Protocol: Document 10/12/23 16:08 [facility] (Rec: 10/12/23 16:16 [facility] [id number]) Therapeutic Exercises Standing Exercises standing hip flexor stretch Reps/Minutes hold 1-2 min Comments cues to pelvic tilt to avoid arching the low back Manual Therapy Treatment Soft Tissue Mobilization MFR over the pumbar paraspinals Mobilization Type Myofascial Release Body Position Prone Comments prone over the body pillow tightness right greater than left lumbar paraspinal muscles Manual Techniques manual iliopsoas release Body Location Bilateral hips Comments in ron test position, right side was not as tight today as compared to previos visits PT-OP-T Assessment and Plan Start: 08/05/23 11:48 Freq: Status: Active Protocol: Document 10/12/23 15:28 [facility] (Rec: 10/12/23 16:08 [facility] [id number]) Physical Therapy Assessment Assessment Summary Assessment low back is not as tight as today and Quyen is feeling that things are starting to calm down. Xray showed some DJD Physical Therapy Plan Frequency and Duration Frequency of Treatment 1x/Week Duration of treatment (weeks) 12 Plan of Care Start Date 08/05/23 Plan of Care End Date 10/28/23 Therapeutic Interventions Therapeutic Interventions Home Exercise Program, Neuromuscular Re-education, Patient/Caregiver Education, Self-Care/Home Management,Soft Tissue Mobilization, Therapeutic Exercises Modalities Biofeedback
--- NOTE | 2023-10-19 16:19 | PT.OTN ---
Current Diagnoses Stress incontinence (female) (male) (10/19/23) Pelvic muscle wasting (10/19/23) Feeling of incomplete bladder emptying (10/19/23) Physical Therapy Treatment Note PT-OP-A Visit Information Start: 08/05/23 11:48 Freq: Status: Active Protocol: Document 10/19/23 15:24 [facility] (Rec: 10/19/23 16:19 [facility] [id number]) Out-Patient Physical Therapy Visit Information Visit Information Visit Type Treatment Note Visit Start Time 15:15 Visit Stop Time 16:00 Visit Number 8 PT-OP-B Current Condition Start: 08/05/23 11:48 Freq: Status: Active Protocol: Document 08/05/23 15:15 [facility] (Rec: 08/05/23 16:23 [facility] [id number]) Current Condition History of Current Condition Onset Date 2018 Current Complaints urinary leakage with strong cough and sneeze, not fully emptying the bladde History of Current Condition pt notes she is having incontinence symptoms, she was told she has atrophied She has a history of a c section after she pushed for 3 hours and then forceps and vaccumm were used. The doctors were unable to get a good enough grasp of her head. Her delivery was in 2018. She has slower stream but feels she often doesn't fully emptying her bladder. She has felt more anterior pelvic pain symptoms more often now. She does have a history of UTI's. IT is intercourse related and she goes to the bathroom. She also has complaints of jaw pain that is more noticiable in the last year. PT-OP-C Subjective Start: 08/05/23 11:48 Freq: Status: Active Protocol: Document 10/19/23 15:24 [facility] (Rec: 10/19/23 16:19 [facility] [id number]) OP-PT Subjective Patient Comments Patient Comments has a MRI next wednesday and low back is doing a little better , she notes leakage when transitioning to a sitting position with week PT-OP-I Pelvic Floor Start: 08/05/23 11:48 Freq: Status: Active Protocol: Document 08/05/23 15:15 [facility] (Rec: 08/10/23 08:15 [facility] [id number]) Pelvic Floor Assessment Urine Pelvic Floor Surgery No Urinary Symptoms Urge Sensation Other Urinary Symptoms urinary stress incontinence with strong cough and sneeze or vigorous activity, pt also discribes mild urgency and occasional pain associated with per vagina Leakage Size Small Leakage Cause Cough,Sneeze Voiding Frequency 5 Nocturia 1 Pelvic Clock Pelvic Clock 3-6 Guarding,Tightness Pelvic Clock 6-9 Tightness Contraction Ability Manual Muscle Testing Left 3 Manual Muscle Testing Right 3 Manual Muscle Testing Anterior 3 Manual Muscle Testing Posterior 3 Muscle Endurance (Seconds) 4 Comments Pelvic Floor Comments pt resting tone on the left side of the pelvic clock is guarded and tight, it is difficult for her to relax her pelvic floor following a contraction PT-OP-Q Treatments Start: 08/05/23 11:48 Freq: Status: Active Protocol: Document 10/19/23 15:24 [facility] (Rec: 10/19/23 16:19 [facility] [id number]) Therapeutic Exercises Supine Exercises TA with march Reps/Minutes x 20 reps templates for eccentric control and coordination Reps/Minutes x 5 min pelvic floor long holds Reps/Minutes 10 reps holding 10 seconds Comments average of 15 and max of 29 3 .8 uv resting tone pelvic floor resting tone Reps/Minutes 1-2 min Comments 2.0 uv ball squeeze Reps/Minutes x 10 reps with pelvic floor squeeze windshield wipers Reps/Minutes x 20 reps Comments this helped relax the pelvic floor to 1.0 uv piriformis stretch Reps/Minutes hold 1-2 minutes Sidelying Exercises clam shells Reps/Minutes 3 x 10 reps PT-OP-T Assessment and Plan Start: 08/05/23 11:48 Freq: Status: Active Protocol: Document 10/19/23 15:24 [facility] (Rec: 10/19/23 16:19 [facility] [id number]) Physical Therapy Assessment Assessment Summary Assessment Kala notes she leaked when sitting with peliv floor stetch so I reviewed all stretches and we talked about taking time to fully void. Resting tone decreased today with adductor assist with ball squeeze Physical Therapy Plan Frequency and Duration Frequency of Treatment 1x/Week Duration of treatment (weeks) 12 Plan of Care Start Date 08/05/23 Plan of Care End Date 10/28/23 Therapeutic Interventions Therapeutic Interventions Home Exercise Program, Neuromuscular Re-education, Patient/Caregiver Education, Self-Care/Home Management,Soft Tissue Mobilization, Therapeutic Exercises Modalities Biofeedback Next Visit Focus/Plan Next Visit Plan try dynamic adductor stretching next visit as Kala tends to hold tension in the adductor muscles. Progress note next visit
--- NOTE | 2023-10-26 16:17 | PT.OTN ---
Current Diagnoses Stress incontinence (female) (male) (10/26/23) Pelvic muscle wasting (10/26/23) Feeling of incomplete bladder emptying (10/26/23) Physical Therapy Treatment Note PT-OP-A Visit Information Start: 08/05/23 11:48 Freq: Status: Active Protocol: Document 10/26/23 16:16 [facility] (Rec: 10/26/23 16:16 [facility] [id number]) Out-Patient Physical Therapy Visit Information Visit Information Visit Type Progress Note Visit Start Time 15:15 Visit Stop Time 16:00 Visit Number 9 PT-OP-B Current Condition Start: 08/05/23 11:48 Freq: Status: Active Protocol: Document 08/05/23 15:15 [facility] (Rec: 08/05/23 16:23 [facility] [id number]) Current Condition History of Current Condition Onset Date 2018 Current Complaints urinary leakage with strong cough and sneeze, not fully emptying the bladde History of Current Condition pt notes she is having incontinence symptoms, she was told she has atrophied She has a history of a c section after she pushed for 3 hours and then forceps and vaccumm were used. The doctors were unable to get a good enough grasp of her head. Her delivery was in 2018. She has slower stream but feels she often doesn't fully emptying her bladder. She has felt more anterior pelvic pain symptoms more often now. She does have a history of UTI's. IT is intercourse related and she goes to the bathroom. She also has complaints of jaw pain that is more noticiable in the last year. PT-OP-C Subjective Start: 08/05/23 11:48 Freq: Status: Active Protocol: Document 10/26/23 15:20 [facility] (Rec: 10/26/23 16:16 [facility] [id number]) OP-PT Subjective Patient Comments Patient Comments pt notes her MRI was normal but she still feels a little guarded in her low back PT-OP-I Pelvic Floor Start: 08/05/23 11:48 Freq: Status: Active Protocol: Document 08/05/23 15:15 [facility] (Rec: 08/10/23 08:15 [facility] [id number]) Pelvic Floor Assessment Urine Pelvic Floor Surgery No Urinary Symptoms Urge Sensation Other Urinary Symptoms urinary stress incontinence with strong cough and sneeze or vigorous activity, pt also discribes mild urgency and occasional pain associated with per vagina Leakage Size Small Leakage Cause Cough,Sneeze Voiding Frequency 5 Nocturia 1 Pelvic Clock Pelvic Clock 3-6 Guarding,Tightness Pelvic Clock 6-9 Tightness Contraction Ability Manual Muscle Testing Left 3 Manual Muscle Testing Right 3 Manual Muscle Testing Anterior 3 Manual Muscle Testing Posterior 3 Muscle Endurance (Seconds) 4 Comments Pelvic Floor Comments pt resting tone on the left side of the pelvic clock is guarded and tight, it is difficult for her to relax her pelvic floor following a contraction PT-OP-Q Treatments Start: 08/05/23 11:48 Freq: Status: Active Protocol: Document 10/26/23 15:20 [facility] (Rec: 10/26/23 16:16 [facility] [id number]) Therapeutic Exercises Supine Exercises roll outs with theraband Reps/Minutes 3 x 10 reps TA with march Reps/Minutes x 20 reps pelvic floor long holds Comments average 21.3 max 37 uv max pelvic floor resting tone Reps/Minutes 1-2 min Comments 2.0 uv ball squeeze Comments average 21 max 34 Sidelying Exercises clam shells Reps/Minutes x 10 each side PT-OP-T Assessment and Plan Start: 08/05/23 11:48 Freq: Status: Active Protocol: Document 10/26/23 15:20 [facility] (Rec: 10/26/23 16:16 [facility] [id number]) Physical Therapy Assessment Goals 3 Impairment Decreased endurance of the pelvic floor Short Term Goal (STG) Quyen is able to sustain a pelvic floor contraction in supine x 10 seconds goal met STG Duration 6 weeks Fpc Goal (LTG) Quyen is able to sustain a pelvic floor contraction in standing x 5 seconds not yet met LTG Duration 12 weeks 2 Impairment Pelvic floor muscle guarding on the left side of the levator ani and pt has difficulty relaxing her pelvic floor at rest Short Term Goal (STG) Quyen is educated on relaxed awareness of the pelvic floor and is given stretches to begin working on pelvic floor relaxation goal met STG Duration 4 weeks Fpc Goal (LTG) Quyen is able to fully relax her pelvic floor at rest with EMG biofeedback improving and Quyen can relax to baseline on EMG biofeedback LTG Duration 12 weeks 1 Impairment urinary stress incontinence [employer]pper Goal (LTG) Quyen is no longer reporting urinary leakage with strong cough or sneeze Quyen reports that has been progress with decreased complaints of leakage Assessment Summary Assessment Quyen notes decreased complaints of urinary leakage. She does feels she still needs to really focus on relaxation for full bladder emptying. She also reports that when leakage has happened it has been when sitting ont he floor with a stretch to her pelvic floor or at night. She does still present with some elevation of the pelvic floor resting tone. She did have a set back with a back flare up and this is improving but has contributed to pelvic floor guarding. Quyen would benefit from continued PT Physical Therapy Plan Frequency and Duration Frequency of Treatment 1x/Week Duration of treatment (weeks) 8 Plan of Care Start Date 10/26/23 Plan of Care End Date 12/21/23 Therapeutic Interventions Therapeutic Interventions Home Exercise Program, Neuromuscular Re-education, Patient/Caregiver Education, Self-Care/Home Management,Soft Tissue Mobilization, Therapeutic Exercises Modalities Biofeedback Next Visit Focus/Plan Next Note Type Treatment Note Next Visit Plan try dynamic adductor stretching next visit as Quyen tends to hold tension in the adductor muscles.
--- NOTE | 2023-10-26 16:18 | PT.OPPOC ---
Physical, Occupational & Speech Therapy At [facility] Current Diagnoses Stress incontinence (female) (male) (10/26/23) Pelvic muscle wasting (10/26/23) Feeling of incomplete bladder emptying (10/26/23) Visit Care Team Role Provider Type ALEX Mahajan Attending Provider Non-Staff Family Provider Primary Care Provider Referring Provider Specialty: Nursing Address: [facility], [address] [place], [place] [address]yohan Petersen, [place], [address] Email: Plan Of Care PT-OP-T Assessment and Plan Start: 08/05/23 11:48 Freq: Status: Active Protocol: Document 10/26/23 15:20 [facility] (Rec: 10/26/23 16:16 [facility] [id number]) Physical Therapy Assessment Goals 3 Impairment Decreased endurance of the pelvic floor Short Term Goal (STG) Quyen is able to sustain a pelvic floor contraction in supine x 10 seconds goal met STG Duration 6 weeks [employer] Goal (LTG) Quyen is able to sustain a pelvic floor contraction in standing x 5 seconds not yet met LTG Duration 12 weeks 2 Impairment Pelvic floor muscle guarding on the left side of the levator ani and pt has difficulty relaxing her pelvic floor at rest Short Term Goal (STG) Quyen is educated on relaxed awareness of the pelvic floor and is given stretches to begin working on pelvic floor relaxation goal met STG Duration 4 weeks [employer] Goal (LTG) Quyen is able to fully relax her pelvic floor at rest with EMG biofeedback improving and Quyen can relax to baseline on EMG biofeedback LTG Duration 12 weeks 1 Impairment urinary stress incontinence [employer] Goal (LTG) Quyen is no longer reporting urinary leakage with strong cough or sneeze Quyen reports that has been progress with decreased complaints of leakage Assessment Summary Assessment Quyen notes decreased complaints of urinary leakage. She does feels she still needs to really focus on relaxation for full bladder emptying. She also reports that when leakage has happened it has been when sitting ont he floor with a stretch to her pelvic floor or at night. She does still present with some elevation of the pelvic floor resting tone. She did have a set back with a back flare up and this is improving but has contributed to pelvic floor guarding. Quyen would benefit from continued PT Physical Therapy Plan Frequency and Duration Frequency of Treatment 1x/Week Duration of treatment (weeks) 8 Plan of Care Start Date 10/26/23 Plan of Care End Date 12/21/23 Therapeutic Interventions Therapeutic Interventions Home Exercise Program, Neuromuscular Re-education, Patient/Caregiver Education, Self-Care/Home Management,Soft Tissue Mobilization, Therapeutic Exercises Modalities Biofeedback Next Visit Focus/Plan Next Note Type Treatment Note Next Visit Plan try dynamic adductor stretching next visit as Quyen tends to hold tension in the adductor muscles. Plan of Care Dates Plan of Care Start Date 10/26/23 Plan of Care End Date 12/21/23 Electronically Signed by: Kari Cavanaugh, PT 10/26/23 3143 If you are in agreement with this Plan of Care, please return a signed and dated copy. I have reviewed this Plan of Care and certify that the skilled therapy services above are required to meet the patient?s needs. Physician Signature Date Printed Name and Credentials Clinical Instructor Signature Printed Name and Credentials
--- NOTE | 2023-11-02 16:21 | PT.OTN ---
Current Diagnoses Stress incontinence (female) (male) (11/02/23) Pelvic muscle wasting (11/02/23) Feeling of incomplete bladder emptying (11/02/23) Physical Therapy Treatment Note PT-OP-A Visit Information Start: 08/05/23 11:48 Freq: Status: Active Protocol: Document 11/02/23 16:21 [facility] (Rec: 11/02/23 16:21 [facility] [id number]) Out-Patient Physical Therapy Visit Information Visit Information Visit Type Treatment Note Visit Start Time 13:20 Visit Stop Time 14:00 Visit Number 10 PT-OP-B Current Condition Start: 08/05/23 11:48 Freq: Status: Active Protocol: Document 08/05/23 15:15 [facility] (Rec: 08/05/23 16:23 [facility] [id number]) Current Condition History of Current Condition Onset Date 2018 Current Complaints urinary leakage with strong cough and sneeze, not fully emptying the bladde History of Current Condition pt notes she is having incontinence symptoms, she was told she has atrophied She has a history of a c section after she pushed for 3 hours and then forceps and vaccumm were used. The doctors were unable to get a good enough grasp of her head. Her delivery was in 2018. She has slower stream but feels she often doesn't fully emptying her bladder. She has felt more anterior pelvic pain symptoms more often now. She does have a history of UTI's. IT is intercourse related and she goes to the bathroom. She also has complaints of jaw pain that is more noticiable in the last year. PT-OP-C Subjective Start: 08/05/23 11:48 Freq: Status: Active Protocol: Document 11/02/23 15:25 [facility] (Rec: 11/02/23 16:21 [facility] [id number]) OP-PT Subjective Patient Comments Patient Comments she feels like she is having a hard time empyting her bladder and she is really having to think about relaxing . She has been doing her pelvic floor and hasn't noticed as much leakage PT-OP-I Pelvic Floor Start: 08/05/23 11:48 Freq: Status: Active Protocol: Document 08/05/23 15:15 [facility] (Rec: 08/10/23 08:15 [facility] [id number]) Pelvic Floor Assessment Urine Pelvic Floor Surgery No Urinary Symptoms Urge Sensation Other Urinary Symptoms urinary stress incontinence with strong cough and sneeze or vigorous activity, pt also discribes mild urgency and occasional pain associated with per vagina Leakage Size Small Leakage Cause Cough,Sneeze Voiding Frequency 5 Nocturia 1 Pelvic Clock Pelvic Clock 3-6 Guarding,Tightness Pelvic Clock 6-9 Tightness Contraction Ability Manual Muscle Testing Left 3 Manual Muscle Testing Right 3 Manual Muscle Testing Anterior 3 Manual Muscle Testing Posterior 3 Muscle Endurance (Seconds) 4 Comments Pelvic Floor Comments pt resting tone on the left side of the pelvic clock is guarded and tight, it is difficult for her to relax her pelvic floor following a contraction PT-OP-Q Treatments Start: 08/05/23 11:48 Freq: Status: Active Protocol: Document 11/02/23 15:25 [facility] (Rec: 11/02/23 16:21 [facility] [id number]) Therapeutic Exercises Supine Exercises roll outs with theraband Equipment Used level 3 theraband Reps/Minutes 3 x 10 reps pelvic floor long holds Comments 17.4 27.9 uv pelvic floor resting tone Reps/Minutes 1-2 min Comments 3.0 resting tone hip flexor stretch at the side of the bed Reps/Minutes hold 1-2 min Manual Therapy Treatment Soft Tissue Mobilization MFR over the abdominal wall and suprapubic fascia Body Location abdominal wall Mobilization Type Myofascial Release Intensity/Depth Moderate Body Position Hooklying Comments worked on both suprapubic fascia as well as abdominal wall release Manual Techniques manual iliopsoas release Body Location Bilateral hips Comments in ron test position PT-OP-T Assessment and Plan Start: 08/05/23 11:48 Freq: Status: Active Protocol: Document 11/02/23 15:25 [facility] (Rec: 11/02/23 16:21 [facility] [id number]) Physical Therapy Assessment Assessment Summary Assessment I worked on fascial release of the abdominal wall today and over the bladder to help improve relaxation and fascial mobility of the abdominal and suprapubic fascia and Quyen tolerated this well. She is going to focus more on her stretches both for her low back as well as her hips. Hip rollouts today helped to reduce resting tone Physical Therapy Plan Frequency and Duration Frequency of Treatment 1x/Week Duration of treatment (weeks) 8 Plan of Care Start Date 10/26/23 Plan of Care End Date 12/21/23 Therapeutic Interventions Therapeutic Interventions Home Exercise Program, Neuromuscular Re-education, Patient/Caregiver Education, Self-Care/Home Management,Soft Tissue Mobilization, Therapeutic Exercises Modalities Biofeedback Next Visit Focus/Plan Next Note Type Treatment Note Next Visit Plan reassess resting tone next visit and how Quyen is doing with toileting strategies to fully empty her bladder
--- NOTE | 2023-12-22 12:12 | PT.OTN ---
Current Diagnoses Stress incontinence (female) (male) (12/22/23) Pelvic muscle wasting (12/22/23) Feeling of incomplete bladder emptying (12/22/23) Physical Therapy Treatment Note PT-OP-A Visit Information Start: 08/05/23 11:48 Freq: Status: Active Protocol: Document 12/22/23 11:16 [facility] (Rec: 12/22/23 12:08 [facility] [id number]) Out-Patient Physical Therapy Visit Information Visit Information Visit Type Treatment Note Visit Start Time 11:15 Visit Stop Time 12:00 Visit Number 11 PT-OP-B Current Condition Start: 08/05/23 11:48 Freq: Status: Active Protocol: Document 08/05/23 15:15 [facility] (Rec: 08/05/23 16:23 [facility] [id number]) Current Condition History of Current Condition Onset Date 2018 Current Complaints urinary leakage with strong cough and sneeze, not fully emptying the bladde History of Current Condition pt notes she is having incontinence symptoms, she was told she has atrophied She has a history of a c section after she pushed for 3 hours and then forceps and vaccumm were used. The doctors were unable to get a good enough grasp of her head. Her delivery was in 2018. She has slower stream but feels she often doesn't fully emptying her bladder. She has felt more anterior pelvic pain symptoms more often now. She does have a history of UTI's. IT is intercourse related and she goes to the bathroom. She also has complaints of jaw pain that is more noticiable in the last year. PT-OP-C Subjective Start: 08/05/23 11:48 Freq: Status: Active Protocol: Document 12/22/23 11:16 [facility] (Rec: 12/22/23 12:08 [facility] [id number]) OP-PT Subjective Patient Comments Patient Comments Pt notes her back has been being better overall and she is working out more frequently . She is no longer noticing urinary leakage Patient Reported Progress Improving PT-OP-I Pelvic Floor Start: 08/05/23 11:48 Freq: Status: Active Protocol: Document 08/05/23 15:15 [facility] (Rec: 08/10/23 08:15 [facility] [id number]) Pelvic Floor Assessment Urine Pelvic Floor Surgery No Urinary Symptoms Urge Sensation Other Urinary Symptoms urinary stress incontinence with strong cough and sneeze or vigorous activity, pt also discribes mild urgency and occasional pain associated with per vagina Leakage Size Small Leakage Cause Cough,Sneeze Voiding Frequency 5 Nocturia 1 Pelvic Clock Pelvic Clock 3-6 Guarding,Tightness Pelvic Clock 6-9 Tightness Contraction Ability Manual Muscle Testing Left 3 Manual Muscle Testing Right 3 Manual Muscle Testing Anterior 3 Manual Muscle Testing Posterior 3 Muscle Endurance (Seconds) 4 Comments Pelvic Floor Comments pt resting tone on the left side of the pelvic clock is guarded and tight, it is difficult for her to relax her pelvic floor following a contraction PT-OP-Q Treatments Start: 08/05/23 11:48 Freq: Status: Active Protocol: Document 12/22/23 11:16 [facility] (Rec: 12/22/23 12:08 [facility] [id number]) Therapeutic Exercises Supine Exercises quick flicks Reps/Minutes 34 max Comments - roll outs with theraband Equipment Used level 3 theraband Reps/Minutes 3 x 10 reps templates for eccentric control and coordination Reps/Minutes x 5 min pelvic floor long holds Supine Exercise Name resting tone of 3 uv Comments average of 21.9 and max of 34 ball squeeze Reps/Minutes x 10 reps Comments average 21 max 34 PT-OP-T Assessment and Plan Start: 08/05/23 11:48 Freq: Status: Active Protocol: Document 12/22/23 11:16 [facility] (Rec: 12/22/23 12:08 [facility] [id number]) Physical Therapy Assessment Goals 3 Impairment Decreased endurance of the pelvic floor Short Term Goal (STG) Quyen is able to sustain a pelvic floor contraction in supine x 10 seconds goal met STG Duration 6 weeks [employer] Or Trap Goal (LTG) Quyen is able to sustain a pelvic floor contraction in standing x 5 seconds not yet met LTG Duration 12 weeks 2 Impairment Pelvic floor muscle guarding on the left side of the levator ani and pt has difficulty relaxing her pelvic floor at rest Short Term Goal (STG) Quyen is educated on relaxed awareness of the pelvic floor and is given stretches to begin working on pelvic floor relaxation goal met STG Duration 4 weeks [employer] Trap Goal (LTG) Quyen is able to fully relax her pelvic floor at rest with EMG biofeedback improving and Quyen can relax to baseline on EMG biofeedback She feels like she is doing better trying to fully empty LTG Duration 12 weeks 1 Impairment urinary stress incontinence Senior Living Goal (LTG) Quyen is no longer reporting urinary leakage with strong cough or sneeze Quyen reports she has not had any leakage for the past 2 months Assessment Summary Assessment Quyen has made great overall progress and she is no longer experiencing urinary leakage. She is working on her stretches to help fully relax her pelvic floor and is now taking her time while voiding to promote full bladder emptying. At this time Quyen is independent with her HEP and will be discharged to a home program. Physical Therapy Plan Frequency and Duration Frequency of Treatment 1x/Week Duration of treatment (weeks) 8 Plan of Care Start Date 12/22/23 Plan of Care End Date 02/16/24 Discharge Physical Therapy Discharge Reasons Goals Met
== END 2023-12-28 14:37 | disposition home or self-care (01) ==
LOC: PHYS 11:15
PROVIDERS: Family Provider Nurse Practitioner; PCP Nurse Practitioner; Referring Provider Nurse Practitioner; Visit Provider Nurse Practitioner
DX: N39.3 Stress incontinence (female) (male) (principal); N81.84 Pelvic muscle wasting; R39.14 Feeling of incomplete bladder emptying
CPT/HCPCS: 97110; 97140; 97161